=== PATIENT | female | born 1985 | race Caucasian/White ===

== ENCOUNTER 2021-08-18 16:41 | Emergency (ER) | payer MEDICAID, SELFPAY ==
[2021-08-18 16:42] VITALS: BP 122/70; PULSE 88; RESP 16; TEMP 36.2; O2SAT 100; BMI 18.4
--- NOTE | 2021-08-18 18:49 | EKG12_ITS ---
Test Reason : DYSRHYTHMIA Blood Pressure : / mmHG Vent. Rate : 072 BPM Atrial Rate : 072 BPM P-R Int : 148 ms QRS Dur : 078 ms QT Int : 406 ms P-R-T Axes : 079 081 057 degrees QTc Int : 444 ms Normal sinus rhythm with sinus arrhythmia Normal ECG Confirmed by ACACIA WARD, BRIT ([id number]), newspaper managing editor ASHLEY JIMÉNEZ ([id number]) on 08/20/2021 1:17:15 PM Referred By: NIMCO Confirmed By:CHAPINCITO ROGER MD
--- NOTE | 2021-08-18 18:50 | EDS_ITS ---
HPI History of Present Illness Chief Complaint: Syncope Detail of Chief Complaint: Syncopal episode that occurred last evening around 1 AM Informant: patient Narrative Narrative: Patient presents to the emergency department with a syncopal episode that occurred approximately 1 AM. Patient states that she had gotten up to use restroom and then noticed that there was a bright berumen out so she went out to take videos of it. Patient remembers starting to take a video and then waking up on the ground where her head had hit the corner of a brick. Patient is unsure how long she was unconscious. Patient presents today for evaluation. She has no history of syncope. Last menstrual period was 2 weeks ago. She denies recent illness. Patient did sustain a laceration to the back part of her head. She does complain of little bit of a headache. Prior similar symptoms: No PFSH PFSH Medical History no medical history Allergy/AdvReac Type Severity Reaction Status Date / Time No Known Allergies Allergy Verified 08/18/21 16:44 Social History Smoking Status: Never smoker ROS ROS ED ROS Narrative Syncope Constitutional Constitutional ED: Reports systems reviewed and no addt'l complaints, except as documented; Denies body ache(s), change in weight or chills Eyes Eyes: Denies acute decrease in peripheral vision, change in vision, double vision or loss of vision ENT ENT ED: Reports none; Denies ear pain, lip swelling, loss taste/smell, neck pain, otalgia or sore throat Cardiovascular Cardiovascular: Reports none; Denies abdominal pain, chest pain with activity, leg edema, lightheadedness, palpitations, rapid heart rate or syncope Respiratory/Chest Respiratory/Chest: Reports none; Denies change in mental status, dry cough, dyspnea, hemoptysis, shortness of breath at rest or shortness of breath with exertion Gastrointestinal Gastrointestinal: Reports none; Denies abdominal pain, change in stool character, diarrhea, hematemesis, hematochezia, melena, rectal bleeding or vomiting Genitourinary Genitourinary ED: Reports none; Denies abdominal discomfort, anuria, dysuria, genital pain or polyuria Musculoskeletal Musculoskeletal: Reports none and other Details: Scalp laceration ; Denies arthralgias, back pain, difficulty walking, extremity pain, muscle weakness or myalgias Integumentary Reports none; Denies abscess or rash Neurologic Neurologic: Reports none; Denies abnormal gait, confusion, focal weakness, frequent falls, headache(s), loss of vision, numbness, paresthesias, radicular pain, vertigo or weakness Psychiatric Psychiatric: Reports systems reviewed and no addt'l complaints, except as documented and none; Denies behavioral changes, confusion, difficulty concentrating, hallucinations, suicidal ideation, tactile hallucinations or visual hallucinations Endocrine Endocrinology: Denies none, cold intolerance, excessive sweating, fatigue or heat intolerance Hematologic/Lymphatic Hematologic/Lymphatic: Reports none; Denies anemia, easy bleeding or easy bruising Allergic/Immunologic Allergic/Immunologic ED: Denies as per HPI, none, lip swelling, mouth swelling, throat swelling, tongue swelling or hives EXAM Physical Exam Const Vital Signs: 08/18/21 16:42 08/18/21 19:11 Temperature 97.1 F L Temperature Source Temporal Pulse Rate 88 Respiratory Rate 16 Respiratory Effort Normal Non-Labored Respiratory Pattern Normal Blood Pressure 122/70 H Blood Pressure Mean 87 Pulse Ox 100 Oxygen Delivery Method Room Air Positive well nourished and well developed General Appearance ED: well developed and NAD HEENT Reports TM's clear and moist mucous membranes HEENT Narrative: Patient has a 2.5 cm laceration to the posterior occiput without any active bleeding. Its relatively well approximated. No bony depressions noted. normocephalic and atraumatic; Negative for trauma or tenderness Tympanic Membrane ED: Yes TM's clear Eyes PERRL and EOMs intact bilaterally General Eye ED: Negative for pale conjunctiva or scleral icterus Neck no lymphadenopathy, supple and no JVD General: Negative for tenderness Chest Wall inspection of chest normal and palpation of chest normal Chest: Negative for tenderness Resp normal respiratory effort and clear to auscultation bilaterally Effort and Inspection: Negative for respiratory distress or pain with movement Auscultation: Negative for rhonchi, wheezes or diminished lung sounds Cardio regular rate, regular rhythm, S1 normal heart sound, S2 normal heart sound and no murmurs Peripheral Pulses: pulses 2+ throughout GI normal to inspection, nondistended, normoactive bowel sounds, soft to palpation, non-tender, non-distended and no masses Back/Spine no CVA tenderness and no thoracic nor lumbar tenderness Extremity normal to inspection General Extremety ED: Negative for edema General Extremity: Negative for edema Neuro oriented x3, CN's II-XII intact bilaterally, no sensory deficits noted and gait normal Sensorium / Orientation: awake, alert, oriented to person, oriented to place and oriented to time Motor Exam: strength 5/5 throughout and strength abnormal Psych mental status grossly normal Skin no rashes or lesions noted and no wounds MDM MDM MDM Narrative Medical decision making narrative: Patient's work-up in the emergency department was unremarkable. Her scalp laceration is old and not amenable to primary repair. She understands this will heal by secondary intention. There is no signs of infection at this time. Patient is from [facility] and I recommend that she follow-up with a primary care physician in the area in 5 to 7 days. This is her first episode of syncope and suspect likely a vasovagal episode. If she continues to experience syncopal episode she may need further work-up and evaluation. Lab Data Labs: Laboratory Results - last 24 hr 08/18/21 08/18/21 08/18/21 19:10 19:10 19:10 WBC 8.0 RBC 3.54 L Hgb 11.8 L Hct 35.4 L MCV 100.0 H MCH 33.3 H MCHC 33.3 RDW Std Deviation 49.3 H RDW Coeff of Colette 13.3 Plt Count 235 MPV 9.6 Immature Gran % (Auto) 0.400 Neut % (Auto) 55.0 Lymph % (Auto) 33.9 Antelope % (Auto) 8.4 Eos % (Auto) 1.8 Baso % (Auto) 0.5 Absolute Neuts (auto) 4.4 Absolute Lymphs (auto) 2.71 Nucleated RBC % 0 Sodium 139 Potassium 3.7 Chloride 108 H Carbon Dioxide 29.0 Anion Gap 2 L BUN 12 Creatinine 0.55 Estim Creat Clear Calc 121.78 Est GFR (MDRD) Af Amer 163 Est GFR (MDRD) Non-Af 135 BUN/Creatinine Ratio 21.9 H Glucose 96 Calcium 8.9 Troponin I High Sens 4 Serum , Qual NEGATIVE Radiography Diagnostic Testing: Radiology Impression Brain CT 08/18/21 19:27 IMPRESSION: Normal unenhanced CT scan of the brain. Electronically Signed: Yuval Castillo MD at 19:48 EDT , Service support , EKG Initial EKG: Attestation: I personally reviewed and interpreted this EKG as follows: Comments: Sinus rhythm with a ventricular rate of 72 bpm with occasional PACs. Discharge Plan Triage Chief Complaint: Syncope ED Provider: Swati Erwin Dx/Rx/DC Orders Clinical Impression: Syncope, Laceration of scalp with delay in treatment, Closed head injury Instructions: ED Head Injury (Adult), ED Laceration, Old: Not Sutured, ED Fainting, Uncertain Cause Primary Care Provider: Care Physician,No Primary Referrals: Care Physician,No Primary [Primary Care Provider] - Activity Restrictions/Additional Instructions: Follow-up with a primary care physician within next 5 to 7 days. Disposition Disposition: Home, Self Care
--- NOTE | 2021-08-18 19:10 | NURSING ---
NO OLD EKGS
[2021-08-18] MEDS: 0.9% Normal Saline 1,000 ML 150 ML IV (19:14)
[2021-08-18 19:16] LABS: Absolute Lymphocyte Count 2.71 X10^3/uL (0.83-4.51); Absolute Neutrophil Count 4.4 X10^3/uL (2.0-7.7); Basophil# 0.04 X10^3/uL; Basophil% 0.5 % (0-1); Eosinophil# 0.14 X10^3/uL; Eosinophils% 1.8 % (0-5); Hematocrit 35.4 % (37-47); Hemoglobin 11.8 g/dL (12.0-15.0); Lymphocyte # 2.71 X10^3/ul (0.83-4.51); Lymphocyte % 33.9 % (19-41); Mean Corp Hgb Conc 33.3 g/dL (32-36); Mean Corpuscular Hgb 33.3 pg (27.0-32.0); Mean Platelet Vol. 9.6 fl (6.2-12.0); Monocyte# 0.67 X10^3/uL; Monocyte% 8.4 % (0-10); NRBC Flagged by Analyzer 0 % (0-5); Platelet Count 235 K/mm3 (150-450); RBC Distribution Width CV 13.3 % (11.6-14.6); RBC Distribution Width SD 49.3 fl (35.1-43.9); Red Blood Count 3.54 M/mm3 (4.2-5.4)
--- NOTE | 2021-08-18 19:27 | CT_ITS ---
STUDY: CT BRAIN WITHOUT CONTRAST REASON FOR EXAM: Female, 35 years old. syncope RADIATION DOSAGE (If Supplied By Facility): CTDIvol = ( 44.99 ) mGy, DLP = ( 762.36 ) mGycm TECHNIQUE: Transaxial CT imaging of the brain was performed without administration of intravenous contrast material. Individualized dose optimization techniques were used for this CT. COMPARISON: No relevant priors. FINDINGS: Normal soft tissue structures. Normal calvarium. Normal size ventricles and extra-axial spaces for the patient''s age. Normal white matter tracts of the cerebral hemispheres. Normal basal ganglia and thalami. Normal brainstem. Normal cerebellum. There is no intracranial hemorrhage. There are no findings of an acute ischemic infarction. Normal visualized paranasal sinuses. CT/Brain/Head without Contrast IMPRESSION: Normal unenhanced CT scan of the brain. Electronically Signed: Yuval Castillo MD at 19:48 EDT , Service support ,
[2021-08-18 19:31] LABS: Internal QC Validated? YES +Cl - CLEAR BKGD; Pregnancy, Serum, hCG Quali. NEGATIVE Negative
[2021-08-18 19:41] LABS: Anion Gap 2 (5-15); BUN 12 mg/dL (7-18); BUN/Creat Ratio 21.9 RATIO (10-20); Calcium,Total 8.9 mg/dL (8.5-10.1); Chloride 108 mmol/L (98-107); Creatinine, Serum 0.55 mg/dL (0.55-1.02); EST Glomerular Filtration Rate 135 mL/min (>60); Est Glom Filt Rate - Afr Amer 163 mL/min (>60); Estimated Creatinine Clearance 121.78 ml/min; Glucose 96 mg/dL (74-106); Potassium 3.7 mmol/L (3.5-5.1); Sodium Level 139 mmol/L (136-145); Troponin-I HS 4 pg/mL (3.0-54.0)
[2021-08-18] MEDS: Diphth,Pertuss(Acell),Tet Vac 0.5 ML Vial IM (19:44)
[2021-08-18 20:11] VITALS: BP 120/68; PULSE 76; RESP 18; O2SAT 97
== END 2021-08-18 20:12 | disposition home or self-care (01) ==
PROVIDERS: Emergency Provider Emergency Medicine
DX: R55 Syncope and collapse (principal); S01.01XA Laceration without foreign body of scalp, initial encounter; X58.XXXA Exposure to other specified factors, initial encounter; Y93.89 Activity, other specified; Y92.9 Unspecified place or not applicable; Y99.8 Other external cause status
CPT/HCPCS: 70450; 80048; 84484; 84703; 85025; 90471; 90715; 93005; 96360; 99284; J7030; A4216